=== PATIENT | female | born 1990 | race Caucasian/White ===

== ENCOUNTER 2020-03-30 11:36 | Emergency (ER) | payer SELFPAY ==
[2020-03-30 11:58] VITALS: BP 134/87; PULSE 92; RESP 17; TEMP 36.8; O2SAT 100; BMI 26.5
--- NOTE | 2020-03-30 12:07 | CT_ITS ---
WS: [id number] CT kidney stone 32226 REASON FOR EXAM: R flank pain IV CONTRAST ADMINISTERED: None. TOTAL EXAM DLP: 854.[address] scans at [facility] use at least one of these dose optimization techniques: automat ed exposure control; mA and/or kV adjustment per patient size (includes targeted exams where dose is matched to clinical indication); or iterative reconstruction. FINDINGS: The lower lungs were normal. The mediastinum showed no abnormalities. The liver showed normal appearance. The spleen, stomach, adrenal glands, pancreas were all normal. The gallbladder showed no definite stones or abnormalities. Both kidneys were of normal size no hydronephrosis no stones in either kidney. Both the right and lef t ureters were normal and followed down to the bladder with no obstructing changes. Right colon was normal as well as the appendix no fluid or inflammatory changes surrounding the appen juma was seen. Large and small bowel patterns were normal. The descending colon showed no diverticulitis. The uterus was normal in both adnexa were normal. The urinary bladder show no abnormalities. The lumbar spine pelvis bony structures were normal. The aorta inferior vena cava were normal. CT/CT kidney stone 17361 IMPRESSION: Normal CT of the abdomen and pelvis There was no evidence of stones in the kidneys ureter bladder.
--- NOTE | 2020-03-30 12:07 | W.ED.BACK ---
HPI - Back Pain/Injury General: Chief Complaint: Abdominal Pain Stated Complaint: LOWER RT SIDE BACK PAIN Time Seen by Provider: 03/30/20 12:00 Source: patient Mode of arrival: ambulatory Limitations: no limitations History of Present Illness: HPI Narrative: Patient is a 29-year-old female who presents to ED today with a complaint of sudden onset right flank pain that began a couple of hours ago. She is reporting nausea without vomiting. She is not having any abdominal pain although she does report abdominal bloating. She was started on metformin 2 days ago for irregular periods. She has not noticed a change in her bowel movements. She has not been running fevers. She denies dysuria, urgency, frequency, hesitancy, hematuria. She does have a history of ectopic pregnancies although states she took a test this morning and it was negative. MD elicited complaint: back pain (flank pain) Onset (ago): hour(s) Timing: constant Severity: moderate Similar Symptoms Previously: No Quality: sharp Location: right flank Radiation: none Exacerbating factors: none Relieving factors: none Associated symptoms: Deny abdominal pain, chills, dysuria, fever(s), nausea, urinary urgency or vomiting Work related injury: No Review of Systems Const: Denies: fever or chills Card: Denies: chest pain Resp: Denies: shortness of breath GI: Denies: abdominal pain, nausea, vomiting or diarrhea : Reports: flank pain and irregular period (being treated with Metformin for this); Denies: difficulty urinating, painful urination, urinary frequency, urinary urgency, urinary hesitancy, vaginal bleeding, vaginal discharge or pelvic pain Musc: Reports: back pain (R flank); Denies: neck pain, extremity pain, extremity swelling, joint pain or joint swelling Skin/Breast: Denies: rash Neuro: Denies: headache, numbness in extremities, weakness in extremities or changes in sensation PFSH ED PFSH: Social History Smoking and tobacco status: never smoked Female Reproductive History: Date of last menstrual period: 02/08/20 Physical Exam Const: COMMON NORMALS: no apparent distress, average body habitus, oriented x3, no limitations, healthy appearing, alert and well nourished Resp: COMMON NORMALS: normal respiratory effort and clear to auscultation bilaterally AUSCULTATION: clear to auscultation bilaterally Cardio: COMMON NORMALS: regular rate and regular rhythm RATE: regular rate RHYTHM: regular rhythm GI: COMMON NORMALS: normal to inspection, nondistended, normoactive bowel sounds, soft to palpation, non-tender, no hepatosplenomegaly and no masses PALPATION: Yes soft and Yes no hepatosplenomegaly : BLADDER/KIDNEY EXAM: Yes CVA tenderness on the right (R CVA and just inferior) Back/Pelvis: GENERAL BACK: Yes CVA tenderness Neuro: COMMON NORMALS: oriented x3 SENSORIUM/ORIENTATION: Yes alert Skin: COMMON NORMALS: no rashes or lesions noted GENERAL SKIN EXAM: no rashes or lesions noted Course Vital Signs: Vital signs: Vital Signs Temperature 98.3 F 03/30/20 11:58 Pulse Rate 94 03/30/20 14:20 Respiratory Rate 132 H 03/30/20 14:20 Blood Pressure 132/70 03/30/20 14:20 Pulse Oximetry 100 03/30/20 14:20 MDM - Back Pain/Injury MDM Narrative: Medical decision making narrative: Clinically patient sounded like a right nephro or ureterolithiasis however on her CT scan the radiologist did not visualize a stone. She does not have blood in her urine making this unlikely. She does have positive leukocyte esterase, WBCs, and bacteria in her urine. She has minimal symptoms of a UTI. There was no swelling or abnormalities on her CT scan to suggest a pyelonephritis. Again this seems unlikely given her acute onset of pain. She did not have any abdominal tenderness on exam-just R back/flank pain. There was no other surgical abnormalities noted on her CT scan. The remainder of her blood work is completely normal. was negative. Her vital signs are completely stable. I will go ahead and place her on Cipro to cover for a UTI/pyelo. Possibility of recent stone passage. Strict return to ED precautions given. Lab Data: Labs: Lab Results 03/30/20 03/30/20 03/30/20 Range/Units 12:20 12:20 12:20 WBC 7.0 (4.0-10.0) 10^3/ uL RBC 4.77 (4.1-5.3) 10^6/u L Hgb 13.9 (11.5-15.3) g/dL Hct 42.4 (37.0-47.0) % MCV 88.9 (81-99) fL MCH 29.1 (28.0-34.0) pg MCHC 32.8 (30.0-36.0) g/dL RDW 12.0 L (12.1-15.1) % Plt Count 275 (130-400) 10^3/c mm MPV 10.6 H (7.4-10.4) fL Neut % (Auto) 54.8 % Lymph % (Auto) 35.1 % Dale % (Auto) 7.4 % Eos % (Auto) 2.3 % Baso % (Auto) 0.3 % Neut # (Auto) 3.8 (1.8-7.7) 10^3/u L Lymph # (Auto) 2.5 (0.8-4.8) 10^3/u L Dale # (Auto) 0.5 (0.2-0.9) 10^3/u L Eos # (Auto) 0.2 (0.0-0.8) 10^3/u L Baso # (Auto) 0.0 (0.0-0.1) 10^3/u L Nucleated RBC % (a uto) 0 % Nucleated RBCs # 0.0 /100WBC Sodium 138 (136-145) mmol/L Potassium 3.6 (3.5-5.1) mmol/L Chloride 103 (98-107) mmol/L Carbon Dioxide 24 (22-29) mmol/L Anion Gap 14.6 (5-19) BUN 9 (6-20) mg/dL Creatinine 0.8 (0.5-0.9) mg/dL GFR Calculation 86.0 L (90-130) mL/min Glucose 96 (65-115) mg/dL Calculated Osmolal ity 282 L (285-295) mOsm/k g Calcium 9.0 (8.5-10.5) mg/dL Total Bilirubin 0.7 (0.15-1.2) mg/dL AST 19 (0-32) U/L ALT 10 (0-33) U/L Alkaline Phosphata se 86 (35-105) IU/L Total Protein 8.0 (6.6-8.7) g/dL Albumin 4.6 (3.5-5.2) g/dL Globulin 3.4 (1.3-4.6) g/dL HCG, Qual Negative (Negative) Urine Color (Yellow) Urine Appearance (CLEAR) Urine pH (5-7) Ur Specific Gravit y (1.005-1.030) Urine Protein (Negative) Urine Glucose (UA) (Normal) Urine Ketones (Negative) Urine Blood (Negative) Urine Nitrate (Negative) Urine Bilirubin (NEGATIVE) Urine Urobilinogen (Negative) mg/dL Ur Leukocyte Haven ase (Negative) Urine RBC (0-2) /hpf Urine WBC (0-5) /hpf Ur Squamous Epith Cells (0-5) Urine Bacteria (NONE) 03/30/20 Range/Units 12:55 WBC (4.0-10.0) 10^3/ uL RBC (4.1-5.3) 10^6/u L Hgb (11.5-15.3) g/dL Hct (37.0-47.0) % MCV (81-99) fL MCH (28.0-34.0) pg MCHC (30.0-36.0) g/dL RDW (12.1-15.1) % Plt Count (130-400) 10^3/c mm MPV (7.4-10.4) fL Neut % (Auto) % Lymph % (Auto) % Dale % (Auto) % Eos % (Auto) % Baso % (Auto) % Neut # (Auto) (1.8-7.7) 10^3/u L Lymph # (Auto) (0.8-4.8) 10^3/u L Dale # (Auto) (0.2-0.9) 10^3/u L Eos # (Auto) (0.0-0.8) 10^3/u L Baso # (Auto) (0.0-0.1) 10^3/u L Nucleated RBC % (a uto) % Nucleated RBCs # /100WBC Sodium (136-145) mmol/L Potassium (3.5-5.1) mmol/L Chloride (98-107) mmol/L Carbon Dioxide (22-29) mmol/L Anion Gap (5-19) BUN (6-20) mg/dL Creatinine (0.5-0.9) mg/dL GFR Calculation (90-130) mL/min Glucose (65-115) mg/dL Calculated Osmolal ity (285-295) mOsm/k g Calcium (8.5-10.5) mg/dL Total Bilirubin (0.15-1.2) mg/dL AST (0-32) U/L ALT (0-33) U/L Alkaline Phosphata se (35-105) IU/L Total Protein (6.6-8.7) g/dL Albumin (3.5-5.2) g/dL Globulin (1.3-4.6) g/dL HCG, Qual (Negative) Urine Color Yellow (Yellow) Urine Appearance Sl hazy (CLEAR) Urine pH 5 (5-7) Ur Specific Gravit y 1.015 (1.005-1.030) Urine Protein Neg (Negative) Urine Glucose (UA) Norm (Normal) Urine Ketones Negative (Negative) Urine Blood Neg (Negative) Urine Nitrate Negative (Negative) Urine Bilirubin Neg (NEGATIVE) Urine Urobilinogen Norm (Negative) mg/dL Ur Leukocyte Haven ase 2+ H (Negative) Urine RBC None (0-2) /hpf Urine WBC 25-40 H (0-5) /hpf Ur Squamous Epith Cells 15-25 H (0-5) Urine Bacteria 1+ H (NONE) Imaging Data^: CT Abd/Pel: Radiologist's impression: [place] [address] CT Scan Report Signed Patient: [place] Chowdhury Unit #: [id number] : 1990 Age/Sex: 29 / F ADM Date: 03/30/20 Loc: ER Room/Bed: Attending Dr: Ordering Provider/Ordering MD: Kristin Contreras Date of Service: 03/30/20 Procedure(s): CT kidney stone [id number] Accession Number(s): [id number] Report Number: [id number] WS: [id number] CT kidney stone [id number] REASON FOR EXAM: R flank pain IV CONTRAST ADMINISTERED: None. TOTAL EXAM DLP: 854.[address] scans at [facility] use at least one of these dose optimization techniques: automated exposure control; mA and/or kV adjustment per patient size (includes targeted exams where dose is matched to clinical indication); or iterative reconstruction. FINDINGS: The lower lungs were normal. The mediastinum showed no abnormalities. The liver showed normal appearance. The spleen, stomach, adrenal glands, pancreas were all normal. The gallbladder showed no definite stones or abnormalities. Both kidneys were of normal size no hydronephrosis no stones in either kidney. Both the right and left ureters were normal and followed down to the bladder with no obstructing changes. Right colon was normal as well as the appendix no fluid or inflammatory changes surrounding the appendix was seen. Large and small bowel patterns were normal. The descending colon showed no diverticulitis. The uterus was normal in both adnexa were normal. The urinary bladder show no abnormalities. The lumbar spine pelvis bony structures were normal. The aorta inferior vena cava were normal. CT/CT kidney stone [id number] IMPRESSION: Normal CT of the abdomen and pelvis There was no evidence of stones in the kidneys ureter bladder. Dictated By: Sami Quintero DO Signed By: Sami Quintero DO Signed Date/Time: 03/30/201257 DD/ 125 Discharge Plan Discharge Patient Disposition: Home, Self-Care Clinical Impression: Acute cystitis Qualifiers: Hematuria presence: without hematuria Qualified Code(s): N30.00 - Acute cystitis without hematuria Condition: Stable Prescriptions: New Cipro 500 mg tablet 500 mg PO Q12H Qty: 14 RF: 0 Zofran 4 mg tablet 4 mg PO Q6H PRN (Reason: nausea and vomiting) Qty: 14 RF: 0 tramadol 50 mg tablet 50 mg PO Q6H PRN (Reason: pain) Qty: 14 RF: 0 No Action metformin 500 mg tablet extended release 24 hr 500 mg PO DAILY RF: 0 Vitamin D3 50 mcg (2,000 unit) Capsule 50 mcg PO DAILY RF: 0 Inositol 40:01 Blend 2 cap PO DAILY RF: 0 Magnesium Complex 2 cap PO DAILY RF: 0 biotin 1 tab PO DAILY RF: 0 Discharge Orders: Discharge Order (Routine); Ordered 03/30/20 Ordered By: Kristin Contreras Discharge Diet: Advance as tolerated Discharge Activity: Increase activity as tolerated Patient Instructions: Urinary Tract Infection in Women (ED), Flank Pain (ED) Activity Restrictions/Additional Instructions: Return to the emergency department for worsening pain, uncontrollable nausea/vomiting keeping you from holding down your medications/antibiotics, fevers greater than 100.4, or any other concerns you may have. Discharge Date/Time: 03/30/20 14:24 Coding Level of Care Code ED Certified Surgical Technologist for Chg Fwd Exam Detailed
[2020-03-30] MEDS: ketorolac 60 mg/2 mL INJ 30 MG IVP (12:24)
[2020-03-30] MEDS: ondansetron 2 mg/ML SDV 2 mL 4 MG IVP (12:24)
[2020-03-30] MEDS: sodium chloride 0.9% 1,000 ML 999 ML IV (12:25)
[2020-03-30 12:32] LABS: Basophils % 0.3 %; Eosinophils # 0.2 10^3/uL (0.0-0.8); Eosinophils % 2.3 %; Hematocrit 42.4 % (37.0-47.0); Hemoglobin 13.9 g/dL (11.5-15.3); Lymphocytes # 2.5 10^3/uL (0.8-4.8); Lymphocytes % 35.1 %; Mean Corpuscular HGB Conc 32.8 g/dL (30.0-36.0); Mean Corpuscular Hemoglobin 29.1 pg (28.0-34.0); Mean Corpuscular Volume 88.9 fL (81-99); Mean Platelet Volume 10.6 fL (7.4-10.4); Monocytes # 0.5 10^3/uL (0.2-0.9); Monocytes % 7.4 %; Neutrophils # 3.8 10^3/uL (1.8-7.7); Neutrophils % 54.8 %; Nucleated Red Blood Cells % 0 %; Platelet Count 275 10^3/cmm (130-400); Red Blood Count 4.77 10^6/uL (4.1-5.3)
[2020-03-30 12:40] LABS: HCG, Serum Qual Negative (Negative)
--- NOTE | 2020-03-30 12:44 | PC.NURSE ---
Pt taken to CT with [employer] service technician.
[2020-03-30 12:46] LABS: Alanine Aminotransferase 10 U/L (0-33); Albumin Level 4.6 g/dL (3.5-5.2); Alkaline Phosphatase 86 IU/L (35-105); Anion Gap 14.6 (5-19); Aspartate Amino Transferase 19 U/L (0-32); Carbon Dioxide 24 mmol/L (22-29); Chloride 103 mmol/L (98-107); Globulin 3.4 g/dL (1.3-4.6); Glucose 96 mg/dL (65-115); Potassium 3.6 mmol/L (3.5-5.1); Sodium 138 mmol/L (136-145); Total Bilirubin 0.7 mg/dL (0.15-1.2)
[2020-03-30 12:52] LABS: Blood Urea Nitrogen 9 mg/dL (6-20); Osmolality Calculated 282 mOsm/kg (285-295)
[2020-03-30 13:07] VITALS: RESP 17
[2020-03-30] MEDS: morphine 4 mg/mL SDV 1 mL IVP (13:07)
[2020-03-30 13:44] LABS: Add Urine Microscopic? YES; Bilirubin Urine Neg (NEGATIVE); Blood Urine Neg (Negative); Glucose Urine UA Norm (Normal); Ketones Urine Negative (Negative); Leukocyte Esterase Urine 2+ (Negative); Nitrate Urine Negative (Negative); Protein Urine Neg (Negative); Specific Gravity, Urine 1.015 (1.005-1.030); Urine Appearance SL Hazy (CLEAR); Urine Color Yellow (Yellow); Urobilinogen Urine Norm (Negative); pH Urine 5 (5-7)
[2020-03-30 13:45] LABS: Add Urine Culture? Yes; Bacteria Urine 1+; Squamous Epithelial Cell Urine 15-25 (0-5); WBC Urine 25-40 /hpf (0-5)
[2020-03-30 13:51] VITALS: BP 125/79; PULSE 80; RESP 17; O2SAT 100
[2020-03-30 14:20] VITALS: BP 132/70; PULSE 94; RESP 132; O2SAT 100
== END 2020-03-30 14:24 | disposition home or self-care (01) ==
PROVIDERS: Emergency Provider Physician Assistant
DX: N30.00 Acute cystitis without hematuria (principal); Z79.84 Long term (current) use of oral hypoglycemic drugs
CPT/HCPCS: 12345; 74176; 80053; 81001; 84703; 85025; 87086; 96361; 96374; 96375; 99282; 99284; A9270; J1885; J2270; J2405; J7030

== ENCOUNTER → 2020-06-23 10:23 | Outpatient (BNVA) | payer OTHER, SELFPAY | PROVIDERS: Visit Provider Nurse Practitioner Family | DX: J02.9 Acute pharyngitis, unspecified (principal); J03.90 Acute tonsillitis, unspecified | CPT/HCPCS: 87071; 87880 ==

== ENCOUNTER 2020-10-25 09:50 | Outpatient (CLI) | payer OTHER, SELFPAY ==
[2020-10-25 10:56] LABS: D Dimer 0.55 ug/mIFEU (0-0.59)
== END 2020-10-25 09:51 | disposition home or self-care (01) ==
PROVIDERS: Visit Provider Nurse Practitioner Family
DX: R00.2 Palpitations (principal)
CPT/HCPCS: 85378

== ENCOUNTER → 2021-01-29 09:21 | Outpatient (BNVA) | payer OTHER, SELFPAY | PROVIDERS: Visit Provider Internal Medicine | DX: E28.2 Polycystic ovarian syndrome (principal); E55.9 Vitamin D deficiency, unspecified; F41.0 Panic disorder [episodic paroxysmal anxiety] | CPT/HCPCS: 99205 ==

== ENCOUNTER 2023-12-03 10:18 | Outpatient (CLI) | payer OTHER, SELFPAY ==
[2023-12-03 11:25] LABS: Basophils % 0.3 %; Eosinophils # 0.1 10^3/uL (0.0-0.8); Eosinophils % 1.7 %; Hematocrit 41.7 % (36-47); Lymphocytes # 2.1 10^3/uL (0.8-4.8); Lymphocytes % 28.7 %; Mean Corpuscular HGB Conc 33.6 g/dL (30-55); Mean Corpuscular Hemoglobin 29.7 pg (27-33); Mean Corpuscular Volume 88.5 fl (85-98); Mean Platelet Volume 10.4 fL (7.4-10.4); Monocytes # 0.5 10^3/uL (0.2-0.9); Monocytes % 7.5 %; Neutrophils # 4.46 10^3/uL (1.8-7.7); Neutrophils % 61.7 %; Nucleated Red Blood Cells % 0 %; Platelet Count 266 10^3/cmm (157-399); Red Blood Count 4.71 10^6/uL (3.85-5.65); Red Cell Distribution Width 12.4 % (12.1-15.1); White Blood Count 7.22 10^3/uL (3.29-11.43)
[2023-12-03 11:42] LABS: Estmated Average Glucose 97
[2023-12-03 12:00] LABS: Free T4 Free Thyroxine 1.42 ng/dL (0.82-1.77); Hepatitis B Surface Antigen Non-Reactive (Nonreactive); Hepatitis C Virus Antibody Non-Reactive (Nonreactive); Procalcitonin 0.03 ng/mL (0-0.5); Thyroid Stimulating Hormone 1.34 uIU/mL (0.27-4.20)
[2023-12-03 12:02] LABS: HIV 1 & 2 Antibody Non-Reactive (Non-Reactiv); HIV 1 & 2 Antigen Non-Reactive (Non-Reactiv)
[2023-12-03 12:07] LABS: Estradiol 143.7 pg/mL; Follicle Stimulating Hormone 2.4 mIU/mL; Luteinizing Hormone 10.9 mIU/mL (0.5-41.7)
[2023-12-03 13:00] LABS: 25 Hydroxy Vitamin D 28 ng/mL (30-100)
[2023-12-04 16:15] LABS: Chlamydia Trachomatis RNA TMA NOT DETECTED (NOT DETECTED); Neisseria Gonorrhoeae RNA, TMA NOT DETECTED (NOT DETECTED)
[2023-12-04 16:23] LABS: RPR w(Moniotor) w/REFL Titer NON-REACTIVE (NON-REACTIVE)
[2023-12-05 23:28] LABS: Anti-Mullerian Hormone Female 5.21 ng/mL (0.36-10.07)
[2023-12-07 12:29] LABS: Thyroid Peroxidase Antobodies 1 IU/mL (<9)
== END 2023-12-03 10:19 | disposition home or self-care (01) ==
LOC: LAB 10:21
PROVIDERS: PCP Obstetrics & Gynecology Reproductive Endocrinology; Visit Provider Obstetrics & Gynecology Reproductive Endocrinology
DX: Z01.83 Encounter for blood typing (principal); Z11.9 Encounter for screening for infectious and parasitic diseases, unspecified; E34.9 Endocrine disorder, unspecified; Z01.84 Encounter for antibody response examination; R53.83 Other fatigue; E55.9 Vitamin D deficiency, unspecified; Z13.79 Encounter for other screening for genetic and chromosomal anomalies; Z11.3 Encounter for screening for infections with a predominantly sexual mode of transmission; Z13.29 Encounter for screening for other suspected endocrine disorder; Z13.1 Encounter for screening for diabetes mellitus
CPT/HCPCS: 36415; 82306; 82670; 83001; 83002; 83036; 83520; 84145; 84439; 84443; 85025; 86376; 86592; 86787; 86803; 87340; 87491; 87591; 87806

== ENCOUNTER 2024-01-04 07:17 | Outpatient (CLI) | payer OTHER, SELFPAY ==
[2024-01-04 07:49] LABS: HCG Quantitative 66.33 mIU/mL
== END 2024-01-04 07:18 | disposition home or self-care (01) ==
LOC: LAB 07:19
PROVIDERS: PCP Obstetrics & Gynecology Reproductive Endocrinology; Visit Provider Obstetrics & Gynecology Reproductive Endocrinology
DX: Z32.00 Encounter for pregnancy test, result unknown (principal)
CPT/HCPCS: 84702

== ENCOUNTER 2024-01-06 07:00 | Outpatient (CLI) | payer OTHER, SELFPAY ==
[2024-01-06 07:36] LABS: HCG Quantitative 73.44 mIU/mL
== END 2024-01-06 07:01 | disposition home or self-care (01) ==
LOC: LAB 07:01
PROVIDERS: PCP Obstetrics & Gynecology Reproductive Endocrinology; Visit Provider Obstetrics & Gynecology Reproductive Endocrinology
DX: Z32.00 Encounter for pregnancy test, result unknown (principal)
CPT/HCPCS: 36415; 84702

== ENCOUNTER 2024-01-10 10:35 | Outpatient (CLI) | payer OTHER, SELFPAY ==
[2024-01-10 11:36] LABS: HCG Quantitative 99.89 mIU/mL
== END 2024-01-10 10:36 | disposition home or self-care (01) ==
PROVIDERS: PCP Obstetrics & Gynecology Reproductive Endocrinology; Visit Provider Obstetrics & Gynecology Reproductive Endocrinology
DX: Z01.89 Encounter for other specified special examinations (principal)
CPT/HCPCS: 84702

== ENCOUNTER 2024-01-13 09:20 | Outpatient (CLI) | payer OTHER, SELFPAY ==
[2024-01-13 10:01] LABS: HCG Quantitative 47.43 mIU/mL
== END 2024-01-13 09:21 | disposition home or self-care (01) ==
LOC: LAB 09:20
PROVIDERS: PCP Obstetrics & Gynecology Reproductive Endocrinology; Visit Provider Obstetrics & Gynecology Reproductive Endocrinology
DX: Z32.00 Encounter for pregnancy test, result unknown (principal)
CPT/HCPCS: 36415; 84702

== ENCOUNTER 2024-01-20 09:47 | Outpatient (CLI) | payer OTHER, SELFPAY ==
[2024-01-20 10:28] LABS: HCG Quantitative 4.82 mIU/mL
== END 2024-01-20 09:48 | disposition home or self-care (01) ==
LOC: LAB 09:48
PROVIDERS: PCP Obstetrics & Gynecology Reproductive Endocrinology; Visit Provider Obstetrics & Gynecology Reproductive Endocrinology
DX: Z32.00 Encounter for pregnancy test, result unknown (principal)
CPT/HCPCS: 36415; 84702

== ENCOUNTER 2024-01-27 10:25 | Outpatient (CLI) | payer OTHER, SELFPAY | END 2024-01-27 10:26 | disposition home or self-care (01) | LOC: LAB 10:26 | PROVIDERS: PCP Obstetrics & Gynecology Reproductive Endocrinology; Visit Provider Obstetrics & Gynecology Reproductive Endocrinology | DX: Z32.00 Encounter for pregnancy test, result unknown (principal) | CPT/HCPCS: 36415; 84702 ==

== ENCOUNTER 2024-07-20 07:23 | Outpatient (CLI) | payer OTHER, SELFPAY | END 2024-07-20 07:24 | disposition home or self-care (01) | LOC: LAB 07:25 | PROVIDERS: Absent Provider Obstetrics & Gynecology Reproductive Endocrinology; PCP Obstetrics & Gynecology Reproductive Endocrinology; Visit Provider Obstetrics & Gynecology Reproductive Endocrinology | DX: Z01.89 Encounter for other specified special examinations (principal) | CPT/HCPCS: 36415; 84144; 84702 ==

== ENCOUNTER 2024-07-22 08:02 | Outpatient (CLI) | payer OTHER, SELFPAY | END 2024-07-22 08:03 | disposition home or self-care (01) | PROVIDERS: PCP Obstetrics & Gynecology Reproductive Endocrinology; Visit Provider Obstetrics & Gynecology Reproductive Endocrinology | DX: Z32.00 Encounter for pregnancy test, result unknown (principal) | CPT/HCPCS: 36415; 84144; 84702 ==